=== PATIENT | female | born 1950 | race Caucasian/White ===

== ENCOUNTER 2023-08-11 11:24 | Outpatient (RCR) | payer MEDICARE, OTHER, SELFPAY | END 2023-08-11 23:59 | disposition home or self-care (01) | LOC: RPT 11:24 | PROVIDERS: ATTENDING PHYSICIAN Nurse Practitioner Adult Health | DX: N39.46 Mixed incontinence (principal); M62.89 Other specified disorders of muscle; R15.1 Fecal smearing | CPT/HCPCS: 97162; 97530 ==

== ENCOUNTER 2023-09-01 18:15 | Outpatient (RCR) | payer MEDICARE, OTHER, SELFPAY | END 2023-09-01 23:59 | disposition home or self-care (01) | LOC: RPT 18:15 | PROVIDERS: ATTENDING PHYSICIAN Nurse Practitioner Adult Health | DX: N39.46 Mixed incontinence (principal); M62.89 Other specified disorders of muscle; R15.1 Fecal smearing | CPT/HCPCS: 97112; 97530 ==

== ENCOUNTER 2023-10-11 14:01 | Outpatient (RCR) | payer MEDICARE, OTHER, SELFPAY | END 2023-10-11 23:59 | disposition home or self-care (01) | LOC: RPT 14:01 | PROVIDERS: ATTENDING PHYSICIAN Nurse Practitioner Adult Health | DX: N39.46 Mixed incontinence (principal); M62.89 Other specified disorders of muscle; R15.1 Fecal smearing | CPT/HCPCS: 97112; 97530 ==

== ENCOUNTER 2023-11-02 15:01 | Outpatient (RCR) | payer MEDICARE, OTHER, SELFPAY | END 2023-11-02 23:59 | disposition home or self-care (01) | LOC: RPT 15:01 | PROVIDERS: ATTENDING PHYSICIAN Nurse Practitioner Adult Health | DX: N39.46 Mixed incontinence (principal); M62.89 Other specified disorders of muscle; R15.1 Fecal smearing | CPT/HCPCS: 97112; 97530 ==

== ENCOUNTER 2023-11-29 14:01 | Outpatient (RCR) | payer MEDICARE, OTHER, SELFPAY | END 2023-11-29 23:59 | disposition home or self-care (01) | LOC: RPT 14:01 | PROVIDERS: ATTENDING PHYSICIAN Nurse Practitioner Adult Health | DX: N39.46 Mixed incontinence (principal); M62.89 Other specified disorders of muscle; R15.1 Fecal smearing | CPT/HCPCS: 97112; 97530 ==

== ENCOUNTER 2024-01-06 13:22 | Outpatient (RCR) | payer MEDICARE, OTHER, SELFPAY | END 2024-01-06 23:59 | disposition home or self-care (01) | LOC: RPT 13:22 | PROVIDERS: ATTENDING PHYSICIAN Nurse Practitioner Adult Health | DX: N39.46 Mixed incontinence (principal); M62.89 Other specified disorders of muscle; R15.1 Fecal smearing | CPT/HCPCS: 97112; 97530 ==

== ENCOUNTER 2024-02-02 13:02 | Outpatient (RCR) | payer MEDICARE, OTHER, SELFPAY | END 2024-02-02 13:50 | disposition home or self-care (01) | LOC: RPT 13:02 | PROVIDERS: ATTENDING PHYSICIAN Nurse Practitioner Adult Health | DX: N39.46 Mixed incontinence (principal); M62.89 Other specified disorders of muscle; R15.1 Fecal smearing | CPT/HCPCS: 97110; 97530 ==

== ENCOUNTER 2024-04-03 00:17 | Emergency (ER) | payer MEDICARE, OTHER, SELFPAY ==
[2024-04-03] VITALS (9 sets, daily range): BP systolic 131–159; BP diastolic 58–92; BMI 23.7
[2024-04-03 01:07] LABS: % Basophils 0.4 % (0-2); % Eosinophils 0.4 % (0-6); % Immature Granulocytes 0.3 % (0-0.5); % Lymphocytes 15.3 % (20.5-51.1); % Monocytes 7.6 % (1.7-9.3); Absolute Basophils 0.1 10^3/uL (0-0.2); Absolute Eosinophils 0.1 10^3/uL (0-0.7); Absolute Lymphocytes 1.8 10^3/uL (1.2-3.4); Absolute Monocytes 0.9 10^3/uL (0.1-0.6); Absolute Neutrophils 8.8 10^3/uL (1.4-6.5); Hematocrit 36.2 % (37.0-47.0); Hemoglobin 12.4 g/dL (12.0-16.0); Mean Corp Hgb Conc. 34.3 g/dL (33.0-37.0); Mean Corpuscular Hgb 29.1 pg (27.0-31.0); Mean Platelet Volume 10.2 fL (7.4-10.4); Nucleated Red Blood Cells % 0 %; Platelet Count 328 10^3/uL (130-400); Red Blood Cell Count 4.26 10^6/uL (4.20-5.40); White Blood Cell Count 11.6 10^3/uL (4.8-10.8)
[2024-04-03 01:17] LABS: ALT (SGPT) 53 U/L (0-35); AST (SGOT) 42 U/L (14-36); Albumin 4.2 g/dl (3.5-5.0); Alkaline Phosphatase 96 U/L (38-126); Blood Urea Nitrogen 22 mg/dl (7-17); Calcium 9.8 mg/dl (8.4-10.2); Carbon Dioxide 27 mmol/L (22-30); Chloride 103 mmol/L (98-107); Estimated Creatinine Clearance 69 ml/min; Glucose 134 mg/dl (70-99); Potassium 3.1 mmol/L (3.5-5.1); Sodium 143 mmol/L (135-145); Total Bilirubin 0.5 mg/dl (0.2-1.3); Total Protein 6.6 g/dl (6.3-8.2); eGFR > 60.00
[2024-04-03 01:28] LABS: Troponin I < 0.012 ng/ml
--- NOTE | 2024-04-03 01:33 | ED.GENMED ---
History of Present Illness
General
Chief Complaint: Cardiac Symptoms
Source: patient and family
Exam Limitations: none
Time Seen by Provider: 04/03/24 01:12
Nursing documentation reviewed up to this point in time: agreed with
History of Present Illness
History of Present Illness:
This is a kash 74-year-old woman who has history of hypertension, hyperlipidemia, GERD who states she and her suffered COVID URI 2 weeks ago after vacationing with family in [place]. Recovered uneventfully and reports negative COVID
testing last weekend. Over the past 2 to 3 days however she has had some palpitations, feeling that her resting heart rate has been elevated 90-100 and tonight she developed some indigestion more so after lying down to bed accompanied with
increased palpitations feeling that her heart was beating somewhat rapidly but she denies irregular heartbeat or a sense of skipping beats. No back pain or neck pain. She does admit to mild nausea tonight after lying down to bed but no vomiting.
She has not had a fever nor chills. No leg pain or swelling. She has not had a cough nor shortness of breath, no dyspnea on exertion.
She does admit to some unintentional weight loss over the past 2 months. No change in bowel habits.
Lifelong non-smoker.
Daily medications include: Hydrochlorothiazide, Yuvafem twice weekly, Mobic, rosuvastatin.
She took a dose of Prilosec tonight for GERD/indigestion symptoms but admits that she rarely requires this. Acid reflux is generally well-controlled. She did eat barbecue chicken wings for dinner along with a salad.
Past History
Past History
ED Past Medical History: GERD, HTN and Hypercholesterolemia
ED Past Surgical History: Gynecological (Tubal ligation) and Orthopedic (Left knee replacement 2021)
Social History
Tobacco: Non-smoker
Alcohol: Occasional (Rare alcohol consumption)
Drug: None
Personal:
Living: with family
Employment: Retired
Family History
Family History: Other (Noncontributory)
Phy Exam
Physical Exam
Physical Exam:
GENERAL: 74-year-old woman appears somewhat younger than stated age, bright and alert, pleasant, appears in no acute distress. is accompanying.
EYE: anicteric
NECK: Supple, nontender, no meningismus, no significant adenopathy. No JVD.
ENT: oral mucosa is moist. No rhinorrhea.
CARDIAC: Regular rate and rhythm at 90-100. no murmur.
LUNGS: Clear breath sounds bilaterally, no acute respiratory distress, no wheezes/rales/rhonchi
ABDOMEN: Soft, nondistended, without focal tenderness, normoactive BS.
NEUROLOGICAL: Alert and oriented x3, no focal neuro deficits.
SKIN: Warm and dry, normal color, skin intact. No rash.
MUSCULOSKELETAL: No C/C/E. peripheral pulses are full and equal b/l. No palpable tenderness.
PSYCH: Normal and appropriate interaction.
Course
Orders/Labs/Results
Orders:
Orders
04/03/24 00:18
Electrocardiogram (*1) Urgent
Reason for Study: Tachycardia
04/03/24 00:19
EKG- Treatment ONCE
04/03/24 00:54
Complete Blood Count/With Diff Urgent
Comprehensive Metabolic Panel Urgent
Free T4 Urgent
Lipase Urgent
Comment: ADD ON
Magnesium Urgent
Comment: ADD ON
TSH Reflex To Free T4 Urgent
Comment: ADD ON
Troponin I Urgent
04/03/24 01:30
Add On- LAB Urgent
Tests Added?: lipase, TSH w reflex to free T-4
04/03/24 01:31
Add On- LAB Urgent
Tests Added?: Mg
04/03/24 01:32
CT Chest Pe Study Urgent
Comment:
Reason For Exam: sinus tach; CP, covid URI 2 wks ago
04/03/24 02:18
KCl 20 Meq/0.9%Sodchl 1000 ml [NSS with KCL 20 MEQ] 20 meq in 1,000 ml IV 500 mls/hr
04/03/24 05:40
Methimazole [Tapazole] 5 mg PO NOW STA
04/03/24 05:48
Metoprolol [Lopressor] 5 mg IV NOW STA
Abnormal Lab Results
04/03/24
00:54
WBC 11.6 H 10^3/uL
(4.8-10.8)
Hct 36.2 L %
(37.0-47.0)
Absolute Neuts (auto) 8.8 H 10^3/uL
(1.4-6.5)
Absolute Monos (auto) 0.9 H 10^3/uL
(0.1-0.6)
Neutrophils % 76.0 H %
(42.2-75.2)
Lymphocytes % 15.3 L %
(20.5-51.1)
Potassium 3.1 L mmol/L
(3.5-5.1)
BUN 22 H mg/dl
(7-17)
Glucose 134 H mg/dl
(70-99)
AST 42 H U/L
(14-36)
ALT 53 H U/L
(0-35)
TSH (Reflex) < 0.02 L uIU/ml
(0.47-4.68)
Free T4 2.86 H ng/dl
(0.78-2.19)
04/03/24 00:54
04/03/24 00:54
Vital Signs
Initial and Last Documented VS:
Initial Vital Signs
Temp Pulse Resp BP Pulse Ox
97.8 F 96 16 151/89 98
04/03/24 00:26 04/03/24 00:26 04/03/24 00:26 04/03/24 00:26 04/03/24 00:26
Last Documented Vital Signs
Temp Pulse Resp BP Pulse Ox
97.8 F 101 24 148/76 99
04/03/24 00:26 04/03/24 06:00 04/03/24 02:15 04/03/24 06:00 04/03/24 02:15
MDM/Problems Addressed
Differential Diagnosis Includes:
Patient presents with 2-day history of palpitations, mildly rapid heart rate and some indigestion tonight.
History of COVID URI 2 weeks ago.
Concern for tacky arrhythmia, pneumonia, pleural effusion, pericardial effusion, ACS, CHF/cardiomyopathy and with history of COVID URI 2 weeks ago must consider PE as well.
Unintentional weight loss over the past month or 2 must consider hyperthyroidism, less likely occult malignancy.
Thus far labs revealed mildly elevated white blood cell count with normal H&H, mild hypokalemia, very minimally elevated LFTs. Troponin is pending. Will add lipase, thyroid function and will plan for CT of the chest/PE study.
Will replete potassium with IV normal saline with IV potassium.
Chronic conditions affecting care: HTN and Other (Hyperlipidemia, GERD, recent COVID URI)
*Radiology
Radiology exam reviewed: radiology read reviewed
*Pulse Oximetry
Patient hypoxic: no
*EKG
Interpreted by ED Provider?: Yes
Interpretation: abnormal
Comparison EKG: changes noted (Sinus tachycardia is new compared to previous EKG July 2021)
Rate: tachycardiac
Rhythm: sinus and PVC's (1 PVC)
[place]: normal axis
Interval: normal interval
QRS Pattern: normal QRS
Ischemia: no ischemia
*Provider Network Mgr Interpretation
Rate: tachycardiac
Interpretation: abnormal
Rhythm: sinus
*Critical Care Note
Total Time (30-74mins, 75-104mins- exclusive of procedures): Not Applicable
Update Note
Update Note:
CTA is unremarkable. No evidence of PE, clear lung reese.
Labs however remarkable for hyperthyroidism with significantly suppressed TSH less than 0.02 and elevated free T4 2.86.
Patient continues with mild tachycardia at 100-104.
BP 140/80 which patient states is her baseline. Overall appears comfortable. She denies palpitations nor chest pain.
Will initiate methimazole at 5 mg twice daily and will add low-dose beta-pau for mild sinus tachycardia.
Will refer to endocrine for further evaluation/follow-up and recommend prompt follow-up with PCP as well.
ED Attending Note
-
Portions of this chart may have been created with voice recognition software.� Occasional wrong word or��sound alike� substitutions may have occurred due to the inherent limitations of voice recognition software.
Discharge Plan
Departure
Patient Disposition: Home (Routine Discharge)
Date of Disposition: 04/03/24
Time of Disposition: 06:11
Patient with high blood pressure during this ER visit?: No
Condition: Good
Discharge Problem:
new onset hyperthyroidism
Instructions: Hyperthyroidism (overactive thyroid)
Prescriptions:
New
methimazole 5 mg tablet
5 mg PO BID Qty: 60 0RF
metoprolol succinate 25 mg tablet extended release 24 hr
25 mg PO DAILY Qty: 30 0RF
Referrals:
Viktor Marvin CRNP [Family Provider] - Call in 1-3 days for appt
Moni Lynn MD [Consulting Staff] - Call in 1-3 days for appt
Interventions
Interventions:
*Risk Screen - Suicide Last Done: 04/03/24 00:26
*General Assessment Last Done: 04/03/24 00:26
*Neglect/Abuse Screening Last Done: 04/03/24 00:26
ED- Fall Risk Assessment Last Done: 04/03/24 00:26
*ED COVID-19 Vaccine History Last Done: 04/03/24 00:26
ED- Pulmonary Assessment Last Done: 04/03/24 00:43
ED- Cardiac Assessment Last Done: 04/03/24 00:43
Discharge Date and Time
Print Language: CYMRO
[2024-04-03 02:38] LABS: Lipase 272 U/L (23-300); Magnesium 1.8 mg/dl (1.6-2.3)
[2024-04-03] MEDS: NSS with KCL 20 MEQ 1000 IV (02:43)
[2024-04-03 04:18] LABS: TSH Reflex To Free T4 < 0.02 uIU/ml (0.47-4.68)
[2024-04-03 04:47] LABS: Free T4 2.86 ng/dl (0.78-2.19)
[2024-04-03] MEDS: LOPRESSOR 5 MG IV (06:00)
[2024-04-03] MEDS: TAPAZOLE 5 MG PO (07:11)
== END 2024-04-03 07:32 | disposition home or self-care (01) ==
LOC: EMR 00:17
PROVIDERS: EMERGENCY PHYSICIAN Emergency Medicine; FAMILY PHYSICIAN Nurse Practitioner Adult Health
DX: E05.90 Thyrotoxicosis, unspecified without thyrotoxic crisis or storm (principal); I10 Essential (primary) hypertension; E78.00 Pure hypercholesterolemia, unspecified; K21.9 Gastro-esophageal reflux disease without esophagitis; R00.2 Palpitations; Z79.899 Other long term (current) drug therapy; Z96.652 Presence of left artificial knee joint; Z98.51 Tubal ligation status
CPT/HCPCS: 99284; 71275; 80053; 83690; 83735; 84439; 84443; 84484; 85025; 93005; Q9967

== ENCOUNTER → 2024-07-19 10:20 | Outpatient (REF) | payer MEDICARE, OTHER, SELFPAY | LOC: WDC 10:20 | PROVIDERS: ATTENDING PHYSICIAN Nurse Practitioner Adult Health; FAMILY PHYSICIAN Internal Medicine | DX: Z78.0 Asymptomatic menopausal state (principal); Z12.31 Encounter for screening mammogram for malignant neoplasm of breast | CPT/HCPCS: 77063; 77067; 77080 ==

== ENCOUNTER → 2024-07-31 13:31 | Outpatient (REF) | payer MEDICARE, OTHER, SELFPAY | LOC: RAD 13:31 | PROVIDERS: ATTENDING PHYSICIAN Internal Medicine Endocrinology, Diabetes & Metabolism; FAMILY PHYSICIAN Nurse Practitioner Adult Health | DX: E05.90 Thyrotoxicosis, unspecified without thyrotoxic crisis or storm (principal) | CPT/HCPCS: 76536 ==

== ENCOUNTER → 2025-01-10 09:33 | Outpatient (REF) | payer MEDICARE, OTHER, SELFPAY ==
[2025-01-10 09:46] VITALS: BP 143/67; BP_SYST 77
== END ==
LOC: RADI 09:33
PROVIDERS: ATTENDING PHYSICIAN Internal Medicine Endocrinology, Diabetes & Metabolism
DX: E04.1 Nontoxic single thyroid nodule (principal)
CPT/HCPCS: 10005; 88173